=== PATIENT | male | born 1990 | race Caucasian/White ===

== ENCOUNTER 2018-10-03 19:36 | Emergency (ER) | payer MEDICAID ==
[~2018-10-03] VITALS: Ht 172.7 cm; Wt 72.6 kg
[2018-10-03 19:46] VITALS: Ht 172.7 cm; Wt 72.6 kg
[2018-10-03] MEDS ORDERED: VALIUM 2 MG TAB2 MG PO (19:47)
[2018-10-03] MEDS ORDERED: CELEXA20 MG PO (19:47)
[2018-10-03 22:03] LABS: ALKALINE PHOSPHATASE 74 U/L (46-116); ALT (SGPT) 41 U/L (10-68); BILIRUBIN - TOTAL 1.45 mg/dL (0.2-1.3); CALC OSMOLALITY 269 mosm/kg (275-300); CALCIUM 9.2 mg/dL (8.5-10.1); CARBON DIOXIDE 26.4 mmol/L (21.0-32.0); CHLORIDE - SERUM 96 mmol/L (98-107); GLUCOSE 74 mg/dL (74-106); POTASSIUM - SERUM 3.6 mmol/L (3.5-5.1); PROTEIN - SERUM 7.4 g/dL (6.4-8.2); SODIUM 135 mmol/L (136-145); UREA NITROGEN 16 mg/dL (7-18); eGFR NON AFRICAN AMERICAN > 90 mL/min (90-120)
[2018-10-03 22:08] LABS: BASOPHILS 0.2 % (0-2); EOSINOPHILS 0.6 % (0-7); HEMATOCRIT 39.1 % (42.0-54.0); HEMOGLOBIN 13.7 g/dL (13.5-17.5); IMMATURE GRANULOCYTES 0.4 % (0-5); LYMPHOCYTES 11.5 % (15-50); MCH 32.3 pg (26.0-34.0); MCV 92.2 fL (80.0-100.0); MEAN PLATELET VOLUME 10.6 fL (7.4-10.4); MONOCYTES 10.2 % (2-11); NEUTROPHILS 77.1 % (40-80); RBC 4.24 10x6/uL (4.20-6.10); RDW 13.4 % (11.5-14.5); WBC 19.8 10x3/uL (4.8-10.8)
[2018-10-03 22:14] LABS: PLATELET COUNT 251 10x3/uL (130-400)
[2018-10-03 22:27] LABS: APPEARANCE CLEAR (CLEAR); BILIRUBIN NEGATIVE (NEGATIVE); COLOR YELLOW (YELLOW); GLUCOSE NEGATIVE (NEGATIVE); KETONE SMALL mg/dL (NEGATIVE); NITRITE NEGATIVE (NEGATIVE); PROTEIN NEGATIVE (NEGATIVE); UROBILINOGEN NORMAL (NORMAL)
[2018-10-03 22:31] LABS: CREATINE KINASE 2365 UL (21-232)
[2018-10-03 22:33] LABS: CKMB 12.9 U/L (0.0-3.6)
[2018-10-03 23:31] VITALS: BP 112/81
[2018-10-03 23:31] LABS: UDS - AMPHET POSITIVE QUAL (NEGATIVE); UDS - BARB NEGATIVE QUAL (NEGATIVE); UDS - BENZO NEGATIVE QUAL (NEGATIVE); UDS - COCAINE NEGATIVE QUAL (NEGATIVE); UDS - OPIATE NEGATIVE QUAL (NEGATIVE); UDS - PCP NEGATIVE QUAL (NEGATIVE); UDS - THC NEGATIVE QUAL (NEGATIVE)
[2018-10-04] MEDS ORDERED: CLEOCIN HCL300 MG PO (00:09)
== END 2018-10-04 00:27 | disposition left against medical advice (07) ==
LOC: D.ER 19:36
PROVIDERS: Family Medicine
DX: F19.10 Other psychoactive substance abuse, uncomplicated (principal); M79.662 Pain in left lower leg; M79.661 Pain in right lower leg; M62.82 Rhabdomyolysis

== ENCOUNTER 2020-01-07 19:48 | Observation (INO) | payer MEDICAID ==
[~2020-01-07] VITALS: Ht 172.7 cm; Wt 65.5 kg
[~2020-01-07 19:48] MED LIST: CELEXA20 MG PO; CLEOCIN HCL300 MG PO; VALIUM 2 MG TAB2 MG PO
[2020-01-07 20:27] LABS: HEMATOCRIT 43.6 % (42.0-54.0); HEMOGLOBIN 14.6 g/dL (13.5-17.5); LYMPHOCYTES 15.7 % (15-50); MCH 30.8 pg (26.0-34.0); MCHC 33.5 g/dL (31.0-37.0); MEAN PLATELET VOLUME 9.6 fL (7.4-10.4); NEUTROPHILS 76.8 % (40-80); RBC 4.74 10x6/uL (4.20-6.10); RDW 12.8 % (11.5-14.5); WBC 15.2 10x3/uL (4.8-10.8)
[2020-01-07 20:28] LABS: PLATELET COUNT 307 10x3/uL (130-400)
--- NOTE | 2020-01-07 20:33 | NUR ---
PT UNABLE TO STAY IN HIS ROOM. ANXIOUS- PACING UP AND DOWN THE [place]- INVOLUNTARIY MOVEMENTS- KICKING LEGS- THROWING HEAD BACK AND FORTH NOTED. ADMITS TO METH USE. STATES ALLERGIC TO HALDOL, SO GEODON AND ATIVAN GIVEN IN STEAD.
[2020-01-07 20:42] LABS: CALC OSMOLALITY 282 mosm/kg (275-300); CALCIUM 9.9 mg/dL (8.5-10.1); CARBON DIOXIDE 25.1 mmol/L (21.0-32.0); CHLORIDE - SERUM 98 mmol/L (98-107); CREATININE - SERUM 1.9 mg/dL (0.6-1.3); GLUCOSE 90 mg/dL (74-106); POTASSIUM - SERUM 4.3 mmol/L (3.5-5.1); SODIUM 138 mmol/L (136-145); UREA NITROGEN 32 mg/dL (7-18); eGFR NON AFRICAN AMERICAN 44 mL/min (90-120)
[2020-01-07 21:04] LABS: ALBUMIN 4.9 g/dL (3.4-5.0); ALKALINE PHOSPHATASE 95 U/L (30-120); ALT (SGPT) 136 U/L (10-68); BILIRUBIN - TOTAL 0.78 mg/dL (0.2-1.3); CREATINE KINASE 408 UL (21-232); LIPASE 106 U/L (73-393); MAGNESIUM - SERUM 2.1 mg/dL (1.8-2.4); PRO BNP 90 pg/mL (0-125); PROTEIN - SERUM 8.7 g/dL (6.4-8.2); THYROID STIMULATING HORMONE 1.09 uIU/mL (0.36-3.74)
[2020-01-07 21:08] LABS: CKMB 4.4 U/L (0.0-3.6)
[2020-01-07 21:24] VITALS: BP 118/89
--- NOTE | 2020-01-07 21:24 | NUR ---
PT NOW RESTING WITH EYES CLOSED. STIRS WITH SLIGHT STIMULATION. V/S STABLE.
--- NOTE | 2020-01-07 22:33 | NUR ---
IN AND OUT CATH PER STERILE TECHNIQUE WITH RETURN OF 100CC CLEAR YELLOW URINE.
[2020-01-07 22:39] LABS: UDS - AMPHET POSITIVE QUAL (NEGATIVE); UDS - BARB NEGATIVE QUAL (NEGATIVE); UDS - BENZO NEGATIVE QUAL (NEGATIVE); UDS - COCAINE NEGATIVE QUAL (NEGATIVE); UDS - OPIATE NEGATIVE QUAL (NEGATIVE); UDS - PCP NEGATIVE QUAL (NEGATIVE); UDS - THC POSITIVE QUAL (NEGATIVE)
[2020-01-07 22:40] LABS: BILIRUBIN NEGATIVE (NEGATIVE); GLUCOSE NEGATIVE (NEGATIVE); KETONE LARGE mg/dL (NEGATIVE); NITRITE NEGATIVE (NEGATIVE); UROBILINOGEN NORMAL (NORMAL)
--- NOTE | 2020-01-07 23:35 | NUR ---
PT ADMITTED TO 2102- BELONGINGS WITH PATIENT- NS CON'T TO INFUSE AT 125ML/HOUR.
[2020-01-07 23:45] VITALS: BMI 22.8
[2020-01-07] MEDS ORDERED: HYDROXYZINE HCL50 MG PO (23:49)
[2020-01-07] MEDS ORDERED: BUSPIRONE HCL7.5 MG PO (23:49)
--- NOTE | 2020-01-07 23:49 | NUR ---
RECIEVED TO ROOM 2102 FROM ER, PT LETHARGIC. MED REC AND HISTORY OBTAINED. WHEN PT ASKED ABOUT HIS HOME MEDICATIONS AND WHEN WAS THE LAST TIME HE HAD TAKE HIS HOME MEDICATIONS. PT ASWERED " I DONT KNOW, IF ITS ON MY LIST AND I HAVE A SCRIPT THEN I MIGHT TAKE IT, IF I HAVE IT, I GET ALOT OF MY MEDS OFF THE STREET." PT DID ANSWER YES THAT HE HAS USED METH AND MARIJUANA YESTERDAY OR EARLIER TODAY, HES NOT SURE WHICH. PT IN BED RESTING, VITALS STABLE, IV TO LEFT HAND WITH NS INFUSING AT 125 CC/HR. PT DENIES PAIN OR NEEDS, BED LOW, CL IN REACH. RN AT BED SIDE, TO DO ADMISSION ASSESSMENT.
--- NOTE | 2020-01-07 23:49 | NUR ---
MED REC AND HISTORY OBTAINED, WHEN PT ASKED ABOUT
[2020-01-08 03:52] VITALS: BP 107/67
--- NOTE | 2020-01-08 04:24 | NUR ---
I have reviewed this patient and I concur with the Shift Assessment completed by the Licensed Practical Nurse today this shift.
[2020-01-08 05:31] LABS: HEMATOCRIT 39.7 % (42.0-54.0); HEMOGLOBIN 13.3 g/dL (13.5-17.5); LYMPHOCYTES 28.2 % (15-50); MCH 31.3 pg (26.0-34.0); MCHC 33.5 g/dL (31.0-37.0); MCV 93.4 fL (80.0-100.0); MEAN PLATELET VOLUME 9.5 fL (7.4-10.4); NEUTROPHILS 60.2 % (40-80); RBC 4.25 10x6/uL (4.20-6.10); RDW 12.9 % (11.5-14.5)
[2020-01-08 05:35] LABS: PLATELET COUNT 237 10x3/uL (130-400)
[2020-01-08 05:54] LABS: ALKALINE PHOSPHATASE 75 U/L (30-120); ALT (SGPT) 107 U/L (10-68); BILIRUBIN - TOTAL 0.75 mg/dL (0.2-1.3); CALC OSMOLALITY 275 mosm/kg (275-300); CALCIUM 8.2 mg/dL (8.5-10.1); CARBON DIOXIDE 22.3 mmol/L (21.0-32.0); CHLORIDE - SERUM 102 mmol/L (98-107); CREATINE KINASE 378 UL (21-232); GLUCOSE 71 mg/dL (74-106); PROTEIN - SERUM 6.8 g/dL (6.4-8.2); SODIUM 136 mmol/L (136-145); UREA NITROGEN 28 mg/dL (7-18)
[2020-01-08 06:05] LABS: CREATININE - SERUM 1.2 mg/dL (0.6-1.3); POTASSIUM - SERUM 3.6 mmol/L (3.5-5.1); eGFR NON AFRICAN AMERICAN 75 mL/min (90-120)
[2020-01-08 06:06] LABS: ALBUMIN 3.6 g/dL (3.4-5.0)
--- NOTE | 2020-01-08 08:00 | NUR ---
AM ROUNDS COMPLETED. INTRODUCED MYSELF TO PT PRIMARY RN FOR TODAYS SHIFT. PT IS A&O SITTING UP IN BED RESTING QUIETLY EATING BREAKFAST. SHIFT ASSESSMENT COMPLETED. PT STATES HE IS FEELING A LITTLE BETTER OVERALL BUT STILL C/O SLIGHT PAIN. PT STATES "MICHAEL BEEN TWEAKING LATELY ON METH AND GOT DEHYDRATED AND MY KIDNEYS STARTED TO HURT" WILL DISCUSS WITH PRIMARY AND CPOC. L.HAND PIV INFUSING NS @125ML/HR ORDERED. NO CURRENT NEEDS AT THIS TIME. CL IN REACH. WILL CTM.
[2020-01-08 08:08] VITALS: BP 003/43
[2020-01-08 12:02] VITALS: BP 106/67
[2020-01-08 12:28] VITALS: Ht 172.7 cm; Wt 65.5 kg
--- NOTE | 2020-01-08 12:41 | NUR ---
WRAPPED PTS L.HAND PIV AND GATHERED SUPPLIES FOR SHOWER. PT DENIES NEEDING ANY ASSISTANCE. PT GETTING INTO SHOWER NOW. WILL CTM.
--- NOTE | 2020-01-08 15:07 | NUR ---
DISCHARGE TEACHING PROVIDED AND PAPERS SIGNED. PT VERBALIZED UNDERSTANDING AND DENIES ANY QUESTIONS OR CONCERNS. ALL BELONGINGS COLLECTED AND SENT WITH PT. D/C PTS L.HAND PIV WITH CATHETER TIP FULLY INTACT. NO FURTHER NEEDS. WILL ESCORT PT DOWN AT THIS TIME.
--- NOTE | 2020-01-08 15:41 | MORECARE ---
CASE MANAGEMENT DISCHARGE SUMMARY PATIENT: YON WRIGHT UNIT: [id number] ADM DATE: 01/07/20 AGE: 29 : 86 SEX: M ROOM/BED: D.2103 AUTHOR: DALE BETANCOURT PHYSICIAN: REFERRING PHYSICIAN: PUJA CASTILLO MD DATE OF SERVICE: 01/08/20 Discharge Plan Patient Name: YON WRIGHT [facility] [facility] 1990 Planned Disposition: Home Anticipated Discharge Date: 01/08/20 Discharge Date: 01/08/2020 Expected LOS: 1 Initial Reviewer: [email or web address] Initial Review Date: 01/08/2020 Generated: 01/08/20 4:40 pm Patient Name: YON WRIGHT Page [phone] at 1541 All edits/amendments must be made on the electronic document DICTATION DATE: 01/08/20 1540 LIAISON INSPECTION LABORATORY ASSISTANT: ADE 01/08/20 1540 RPT#: [id number] DC DATE:01/08/20 STATUS: DIS IN [facility] [address] [facility] [address] END OF REPORT
== END 2020-01-08 15:09 | disposition home or self-care (01) ==
LOC: D.ER 19:48 → D.M2 22:56 → OBSVTIME 22:56 → D.M2 01-08 15:09
PROVIDERS: Family Medicine; ADMIT Internal Medicine Nephrology; ATTEND Internal Medicine Nephrology
DX: N17.9 Acute kidney failure, unspecified (principal); G93.41 Metabolic encephalopathy; F15.10 Other stimulant abuse, uncomplicated; D64.9 Anemia, unspecified; F41.8 Other specified anxiety disorders; F17.213 Nicotine dependence, cigarettes, with withdrawal; M62.82 Rhabdomyolysis

== ENCOUNTER 2020-01-19 09:14 | Emergency (ER) | payer MEDICAID ==
[~2020-01-19] VITALS: Ht 172.7 cm; Wt 68.2 kg
[~2020-01-19 09:14] MED LIST changes: +BUSPIRONE HCL7.5 MG PO; +HYDROXYZINE HCL50 MG PO
[2020-01-19 09:18] VITALS: BP 116/93; Ht 172.7 cm; Wt 68.2 kg
[2020-01-19 09:36] LABS: HEMOGLOBIN 14.6 g/dL (13.5-17.5); MCH 31.7 pg (26.0-34.0); MCHC 33.2 g/dL (31.0-37.0); MCV 95.4 fL (80.0-100.0); MEAN PLATELET VOLUME 10.3 fL (7.4-10.4); PLATELET COUNT 308 10x3/uL (130-400); RBC 4.61 10x6/uL (4.20-6.10); RDW 12.8 % (11.5-14.5); WBC 21.7 10x3/uL (4.8-10.8)
[2020-01-19 09:45] LABS: CALCIUM 9.8 mg/dL (8.5-10.1); CARBON DIOXIDE 26.5 mmol/L (21.0-32.0); CREATININE - SERUM 1.4 mg/dL (0.6-1.3); POTASSIUM - SERUM 3.5 mmol/L (3.5-5.1)
[2020-01-19 09:51] LABS: ALBUMIN 4.7 g/dL (3.4-5.0); BILIRUBIN - TOTAL 0.49 mg/dL (0.2-1.3); MAGNESIUM - SERUM 1.9 mg/dL (1.8-2.4); PROTEIN - SERUM 8.4 g/dL (6.4-8.2)
[2020-01-19 09:56] LABS: LYMPHOCYTES 15 % (15-50); MONOCYTES 7 % (2-11); NEUTROPHILS 78 % (40-80); PLATELET ESTIMATE NORMAL
[2020-01-19 10:10] LABS: BILIRUBIN NEGATIVE (NEGATIVE); GLUCOSE NEGATIVE (NEGATIVE); KETONE NEGATIVE (NEGATIVE); NITRITE NEGATIVE (NEGATIVE); SPECIFIC GRAVITY 1.025 (1.005-1.020); UROBILINOGEN NORMAL (NORMAL)
[2020-01-19 10:19] LABS: UDS - AMPHET POSITIVE QUAL (NEGATIVE); UDS - BARB NEGATIVE QUAL (NEGATIVE); UDS - BENZO NEGATIVE QUAL (NEGATIVE); UDS - COCAINE NEGATIVE QUAL (NEGATIVE); UDS - OPIATE NEGATIVE QUAL (NEGATIVE); UDS - PCP NEGATIVE QUAL (NEGATIVE); UDS - THC POSITIVE QUAL (NEGATIVE)
== END 2020-01-19 12:10 | disposition home or self-care (01) ==
LOC: D.ER 09:14
PROVIDERS: Family Medicine
DX: F19.129 Other psychoactive substance abuse with intoxication, unspecified (principal)

== ENCOUNTER 2020-02-01 14:49 | Emergency (ER) | payer MEDICAID ==
[~2020-02-01] VITALS: Ht 172.7 cm; Wt 72.7 kg
[2020-02-01 15:00] VITALS: Ht 172.7 cm; Wt 72.7 kg
[2020-02-01 15:36] LABS: ANION GAP 20.8 mmol/L (8-16); BILIRUBIN NEGATIVE (NEGATIVE); CALCIUM 9.5 mg/dL (8.5-10.1); CARBON DIOXIDE 25.3 mmol/L (21.0-32.0); CREATININE - SERUM 1.8 mg/dL (0.6-1.3); GLUCOSE NEGATIVE (NEGATIVE); KETONE SMALL mg/dL (NEGATIVE); NITRITE NEGATIVE (NEGATIVE); POTASSIUM - SERUM 4.1 mmol/L (3.5-5.1); UROBILINOGEN NORMAL (NORMAL)
[2020-02-01 15:38] LABS: UDS - AMPHET POSITIVE QUAL (NEGATIVE); UDS - BARB NEGATIVE QUAL (NEGATIVE); UDS - BENZO NEGATIVE QUAL (NEGATIVE); UDS - COCAINE NEGATIVE QUAL (NEGATIVE); UDS - OPIATE NEGATIVE QUAL (NEGATIVE); UDS - PCP NEGATIVE QUAL (NEGATIVE); UDS - THC POSITIVE QUAL (NEGATIVE)
[2020-02-01 15:43] LABS: ACETAMINOPHEN 0.9 ug/mL (10.0-30.0); BILIRUBIN - TOTAL 0.56 mg/dL (0.2-1.3); MAGNESIUM - SERUM 1.9 mg/dL (1.8-2.4); PROTEIN - SERUM 8.4 g/dL (6.4-8.2)
[2020-02-01 15:49] LABS: BACTERIA FEW /hpf (NEGATIVE); EPITHELIAL CELLS 0-5 /hpf (0-5); RED CELLS - URINE 0-5 /hpf (0-5); WHITE CELLS - URINE 0-5 /hpf (NEGATIVE)
[2020-02-01 16:07] LABS: HEMATOCRIT 43.3 % (42.0-54.0); HEMOGLOBIN 14.6 g/dL (13.5-17.5); MCH 32.3 pg (26.0-34.0); MCHC 33.7 g/dL (31.0-37.0); MCV 95.8 fL (80.0-100.0); MEAN PLATELET VOLUME 10.8 fL (7.4-10.4); PLATELET COUNT 232 10x3/uL (130-400); RBC 4.52 10x6/uL (4.20-6.10); RDW 13.7 % (11.5-14.5); WBC 26.7 10x3/uL (4.8-10.8)
[2020-02-01 16:38] LABS: LYMPHOCYTES 11 % (15-50); MONOCYTES 6 % (2-11); NEUTROPHILS 79 % (40-80); PLATELET ESTIMATE NORMAL
[2020-02-01 16:58] VITALS: BP 122/74
== END 2020-02-01 16:58 | disposition home or self-care (01) ==
LOC: D.ER 14:49
PROVIDERS: Emergency Medicine
DX: F15.10 Other stimulant abuse, uncomplicated (principal)

== ENCOUNTER 2020-02-04 02:52 | Emergency (ER) | payer MEDICAID ==
[~2020-02-04] VITALS: Ht 172.7 cm; Wt 75.0 kg
[2020-02-04 02:56] VITALS: Ht 172.7 cm; Wt 75.0 kg
[2020-02-04] MEDS ORDERED: INVEGA1.5 MG PO (02:59)
[2020-02-04] MEDS ORDERED: DEPAKOTE500 MG PO (02:59)
[2020-02-04 03:37] LABS: BASOPHILS 0.1 % (0-2); IMMATURE GRANULOCYTES 0.5 % (0-5); LYMPHOCYTES 11.3 % (15-50); MCH 31.9 pg (26.0-34.0); MCHC 33.3 g/dL (31.0-37.0); MCV 95.8 fL (80.0-100.0); MEAN PLATELET VOLUME 10.5 fL (7.4-10.4); MONOCYTES 9.5 % (2-11); NEUTROPHILS 77.6 % (40-80); PLATELET COUNT 228 10x3/uL (130-400); RBC 4.07 10x6/uL (4.20-6.10); RDW 13.5 % (11.5-14.5); WBC 18.3 10x3/uL (4.8-10.8)
[2020-02-04 03:40] VITALS: BP 135/78
[2020-02-04 03:42] LABS: CALC OSMOLALITY 266 mosm/kg (275-300); CALCIUM 8.9 mg/dL (8.5-10.1); CARBON DIOXIDE 23.7 mmol/L (21.0-32.0); CHLORIDE - SERUM 95 mmol/L (98-107); CREATININE - SERUM 1.3 mg/dL (0.6-1.3); POTASSIUM - SERUM 3.7 mmol/L (3.5-5.1); SODIUM 133 mmol/L (136-145); UREA NITROGEN 20 mg/dL (7-18); eGFR NON AFRICAN AMERICAN 68 mL/min (90-120)
[2020-02-04 03:43] LABS: GLUCOSE 61 mg/dL (74-106)
[2020-02-04 04:02] LABS: BILIRUBIN NEGATIVE (NEGATIVE); GLUCOSE NEGATIVE (NEGATIVE); KETONE SMALL mg/dL (NEGATIVE); NITRITE NEGATIVE (NEGATIVE); SPECIFIC GRAVITY 1.005 (1.005-1.020); UROBILINOGEN NORMAL (NORMAL)
[2020-02-04 04:13] LABS: UDS - AMPHET POSITIVE QUAL (NEGATIVE); UDS - BARB NEGATIVE QUAL (NEGATIVE); UDS - BENZO NEGATIVE QUAL (NEGATIVE); UDS - COCAINE NEGATIVE QUAL (NEGATIVE); UDS - OPIATE NEGATIVE QUAL (NEGATIVE); UDS - PCP NEGATIVE QUAL (NEGATIVE); UDS - THC POSITIVE QUAL (NEGATIVE)
[2020-02-04 04:16] LABS: ALBUMIN 4.2 g/dL (3.4-5.0); ALKALINE PHOSPHATASE 65 U/L (30-120); ALT (SGPT) 53 U/L (10-68); BILIRUBIN - TOTAL 0.74 mg/dL (0.2-1.3); MAGNESIUM - SERUM 1.8 mg/dL (1.8-2.4); PRO BNP 392 pg/mL (0-125); PROTEIN - SERUM 7.5 g/dL (6.4-8.2)
[2020-02-04 04:20] LABS: CKMB 9.1 U/L (0.0-3.6); CREATINE KINASE 4546 UL (21-232)
== END 2020-02-04 03:40 | disposition left against medical advice (07) ==
LOC: D.ER 02:52
PROVIDERS: Family Medicine
DX: F15.10 Other stimulant abuse, uncomplicated (principal); D72.829 Elevated white blood cell count, unspecified; M62.82 Rhabdomyolysis; R53.81 Other malaise; R74.0 Nonspecific elevation of levels of transaminase and lactic acid dehydrogenase [LDH]; Z53.29 Procedure and treatment not carried out because of patient's decision for other reasons